=== PATIENT | male | born 1950 | race Caucasian/White ===

== ENCOUNTER → 2021-02-23 07:51 | Outpatient (CLI) | payer MEDICARE, OTHER | END | disposition home or self-care (01) | LOC: D.HCCECHO 07:51 | PROVIDERS: ATTEND Internal Medicine Cardiovascular Disease | DX: R06.02 Shortness of breath (principal) ==

== ENCOUNTER 2021-03-04 06:59 | Day surgery (SDC) | payer MEDICARE, OTHER ==
[~2021-03-04] VITALS: Ht 177.8 cm; Wt 97.0 kg
--- NOTE | ~2021-03-04 | HEMODYNAMI ---
PATIENT:TRACI GONZALES MEDICAL RECORD: [id number] : 54 LOCATION:[facility] ADMISSION DATE: 03/04/21 Generatedon:110:23 Patient name: TRACI GONZALES Patient #: [id number] SSN: [id number] : 1950 Date of study: 03/04/2021 Page: Of Hemodynamic Procedure Report Patient Data Patient Demographics Procedure consent was obtained First Name: TRACI Gender: Male Last Name: JANET : 1950 Patient #: [id number] Age: 70 year(s) Race: SSN: [id number] Additional ID: [id number] Contact details Address: [address] [place] [address] TRAIL State: [place] City: [place] Zip code: [address] Past Medical History Performed procedures and imaging results Date Procedure Procedure Results Comments 02/23/2021 Stress testing Positive->Intermediate with SPECT MPI risk Allergies Allergen Reaction Date Comments Reported Other allergy 03/04/2021 CODEINE Admission Admission Data Admission Date: 03/04/2021 Admission Time: 6:59 Arrival Date: 03/04/2021 Arrival Time: 0:00 Admit Source: Other Insurance Payor: Medicare HIC #: [id number] Height (in.): 70 BSA: 2.15 (m2) Height (cm.): 177.8 BMI: 30.85 (kg/m2) Weight (lbs.): 215 Weight (kg.): 97.52 Lab Results Lab Result Date: 03/04/2021 Lab Result Time: 0:00 Biochemistry Name Units Result Min Max BUN mg/dl 13 --(--*-)-- 7 18 Creatinine mg/dl 1.1 --(--*-)-- 0.6 1.3 eGFR ml/min 70.60675 *-(----)-- 90 120 NONAFRICAN CBC Name Units Result Min Max Hematocrit % 44 --(*---)-- 42 54 Hemoglobin g/dl 14.9 --(-*--)-- 13.5 17.5 Procedure Procedure Types Cath Procedure Diagnostic Procedure C [facility] w/Coronaries Sedation Charges Moderate Sedation 25-39 minutes Procedure Description Procedure Date Procedure Date: 03/04/2021 Procedure Start Time: 9:54 Procedure End Time: 10:21 Procedure Staff Name Function Garett Da Silva RN Nurse Blaise Toure MD Performing Physician Heather Nina RT Scrub Kayleigh Bhat RT Monitor Procedure Data Cath Procedure Fluoroscopy Diagnostic fluoroscopy Total fluoroscopy Time: 8.1 time: 8.1 min min Diagnostic fluoroscopy Total fluoroscopy dose: 957 dose: 957 mGy mGy Contrast Material Contrast Material Type Amount (ml) Isovue 300 86 Entry Location Entry Primary Successful Side Size Upsize Upsize Entry Closure Dougherty ccessful Closure Location (Fr) 1 (Fr) 2 (Fr) Remarks Device Remarks Radial Right 6 Fr Mechanical artery Short Compression Estimated blood loss: 5 ml Diagnostic catheters Device Type Used For End Catheter Placement DIAGNOSTIC [place] 110cm 5 Multi-vessel Fr catheter ([id number]) Angiography DIAGNOSTIC AR MOD 5Fr Right Coronary Catheter ([id number]) Angiography Procedure Complications No complications Procedure Medications Medication Administration Route Dosage Oxygen etCO2 Nasal cannula 2 l/min Lidocaine 2% added to field 20 Heparin Flush Bag added to field 2 bags (1000units/500ml NS) 0.9% NaCl I.V. 100 ml/hr Versed I.V. 1 mg Fentanyl I.V. 50 mcg Radial Cocktail I.A. 1 syringe (Verapamil 2mg/Nitro 400mcg/Heparin 1500units) Versed I.V. 1 mg Fentanyl I.V. 50 mcg Versed I.V. 1 mg Versed I.V. 1 mg Heparin Bolus Hemodynamics Rest BSA: 2.15 (m2) HGB: 14.9 (g/dl) O2 Consumption: Estimated: 233.59 (ml/min) O2 Co nsumption indexed: Estimated:108.65 (ml/min/m) Heart Rate: 50 (bpm) Pressure Samples Time Site Value (mmHg) Purpose Heart Use Rate(bpm) 9:58 LV 96/9,20 Snapshot 65 Gradients Valve Time Site Site Mean SEP/DFP Peak To Heart Use 1 2 (mmHg) (sec/min) Peak Rate (mmHg) (bpm) Aortic 9:58 LV AO 62 Snapshots Pre Cath Intra NCS Post Cath Vital Signs Time Heart Resp SPO2 etCO2 NIBP (mmHg) Rhythm Pain Sedation Rate (ipm) (%) (mmHg) Status Level (bpm) 9:42:28 52 16 99 26.3 154/83(137) NSR 0 (11) 10(A) , No pain 9:46:54 54 13 98 36.8 139/70(104) NSR 0 (11) 10(A) , No pain 9:51:16 54 12 93 45.1 125/64(123) NSR 0 (11) 10(A) , No pain 9:55:37 53 10 93 45.8 122/59(87) NSR 0 (11) 10(A) , No pain 9:59:48 63 11 93 41.3 96/52(71) NSR 0 (11) 9(A) , No pain 10:04:00 55 10 94 42.1 104/60(85) NSR 0 (11) 9(A) , No pain 10:08:17 63 12 95 29.3 115/63(90) NSR 0 (11) 9(A) , No pain 10:12:32 60 12 94 40.6 100/57(80) NSR 0 (11) 9(A) , No pain 10:16:48 53 13 96 39.8 97/53(74) NSR 0 (11) 10(A) , No pain 10:21:01 49 13 96 35.3 114/63(93) NSR 0 (11) 10(A) , No pain Medications Time Medication Route Dose Verified Delivered Reason Notes Effectiveness by by 9:41:25 Oxygen etCO2 2 l/min Blaise Buffie used for Nasal Mesfin Da Silva RN procedure cannula 9:41:31 Lidocaine 2% added 20ml Blaise Blaise for local to vial Mesfin Toure MD anesthetic field 9:41:37 Heparin Flush added 2 bags Blaise Blaise used for Bag to Mesfin Toure MD procedure (1000units/500ml field NS) 9:41:46 0.9% NaCl I.V. 100 Blaise Buffie Per ml/hr Mesfin Da Silva RN physician 9:46:26 Versed I.V. 1 mg Blaise Buffie for sedation Mesfin Da Silva RN 9:46:32 Fentanyl I.V. 50 mcg Blaise Buffie for sedation Mesfin Da Sliva RN 9:55:07 Versed I.V. 1 mg Blaise Blaise for sedation Mesfin Toure MD 9:55:11 Fentanyl I.V. 50 mcg Blaise Blaise for sedation Mesfin Toure MD 9:56:35 Radial Cocktail I.A. 1 Blaise Blaise for (Verapamil syringe Mesfin Toure MD vasodilation 2mg/Nitro 400mcg/Heparin 1500units) 9:59:32 Versed I.V. 1 mg Blaise Blaise for sedation Mesfin Toure MD 10:04:33 Versed I.V. 1 mg Blaise Blaise for sedation Mesfin Toure MD 10:16:49 Heparin Bolus drawn Blaise Blaise unable up, not Mesfin Toure MD to given engage lt main with guide, heparin drawn up and wasted. Procedure Log Time Note 9:03:44 Informed consent obtained and on chart 9:04:04 Arrival Date: 03/04/2021 12:00:00 AM 9:04:04 Admit Source: Other 9:04:09 Patient Height : 70 inches 9:04:14 Patient Weight : 215 lbs 9:04:18 Insurance Payor : Medicare 9:09:50 ACC Patient presents with Stable Angina CCS Anginal Class 2--Slight limitation of ordinary activity. 9:09:52 Procedure Status Elective Heart Cath (OP). 9:09:54 Time tracking: Regular hours (M-F 7:00 - 5:00) 9:09:58 Plan of Care:Hemodynamics will remain stable., Cardiac rhythm will remain stable., Comfort level will be maintained., Respiratory function will remain adequate., Patient/ family verbilizes understanding of procedure., Procedure tolerated without complication., Recovers from procedure without complications.. 9:10:07 H&P Date Dictated: 02/15/2021 Within 30 days and on chart.. 9:10:08 Pre-procedure instructions explained to patient. 9:10:09 Pre-op teaching completed and patient verbalized understanding. 9:10:10 Family unavailable. 9:10:12 Patient NPO since Midnight. 9:10:27 Patient allergic to Other allergyCODEINE 9:10:58 Lab Result : BUN 13 mg/dl 9:10:58 Lab Result : Creatinine 1.1 mg/dl 9::58 Lab Result : eGFR NONAFRICAN 70.27848 ml/min 9::58 Lab Result : Hemoglobin 14.9 g/dl 9::58 Lab Result : Hematocrit 44 % 9:11:02 Lab results completed and on chart. 9:11:20 Stress Test: yes; abnormal INFERIOR 9:11:21 Alarms reviewed by R. N. 9:11:22 Sharps counted by scrub and verified by R.N. 9:15:01 Garett Da Silva RN sent for patient. Start room use. 9:41:15 Vital chart was started 9:41:25 Oxygen 2 l/min etCO2 Nasal cannula was administered by Garett Da Silva RN; used for procedure; Verbal order read back and verified. 9:41:31 Lidocaine 2% 20ml vial added to field was administered by Blaise Toure MD; for local anesthetic; Verbal order read back and verified. 9:41:37 Heparin Flush Bag (1000units/500ml NS) 2 bags added to field was administered by Blaise Toure MD; used for procedure; Verbal order read back and verified. 9:41:46 0.9% NaCl 100 ml/hr I.V. was administered by Garett Da Silva RN; Per physician; Verbal order read back and verified. 9:44:47 Patient received from Pre/Post Procedure Room to CCL 1 Alert and oriented. Tansferred to table in Supine position. 9:44:48 Warm blankets applied, and abimael hugger turned on for patient comfort. 9:44:48 Correct patient and procedure confirmed by team. 9:44:49 Baseline sample Acquired. 9:44:49 ECG and BP/O2 sat monitors applied to patient. 9:44:52 Rhythm: sinus bradycardia 9:45:02 Full Disclosure recording started 9:45:05 Is the patient allergic to Iodine/contrast media? No. 9:45:05 Was the patient premedicated? Yes 9:45:07 Is patient on blood thinner?No 9:45:08 Patient diabetic? No. 9:45:14 Previous problem with sedation/anesthesia? No ? 9:45:16 Snore? No 9:45:17 Sleep apnea? No 9:45:18 Deviated septum? No 9:45:18 Opens mouth fully? Yes 9:45:19 Sticks out tongue? Yes 9:45:21 Airway obstruction? No ? 9:45:23 Dentures? No ? 9:45:26 Pre procedure: right dorsailis pedis pulse 2+ Normal; easily identifiable; not easily obliterated 9:45:29 Pre procedure: left dorsailis pedis pulse 2+ Normal; easily identifiable; not easily obliterated 9:45:33 Modified Usman's test Radial < 7 seconds 9:45:35 Patient pain scale 0/10 ?. 9:45:41 IV patent on arrival in left forearm with 0.9% NaCl at [facility]. 9:45:48 Right Radial & Right Groin area was prepped with chlora-prep and draped in sterile fashion 9:45:55 Physician arrived 9:45:55 --------ALL STOP TIME OUT------ 9:45:55 Final Timeout: patient, procedure, and site verified with staff and physician. All members of the team are in agreement. 9:45:57 Right Radial & Right Groin site verified by team. 9:46:01 Fire Safety Assessment: A--An alcohol-based skin anteseptic being used preoperatively., C--Open oxygen or nitrous oxide is being used., D--An ESU, laser, or fiber-optic light is being used. 9:46:04 Physical assessment completed. ASA score P 2 - A patient with mild systemic disease as per Garett Da Silva RN. 9:46:17 2) 60-89 Mildly reduced kidney function, and other findings (as for stage 1) point to kidney disease. 9:46:26 Versed 1 mg I.V. was administered by Garett Da Silva RN; for sedation; Verbal order read back and verified. 9:46:32 Fentanyl 50 mcg I.V. was administered by Garett Da Silva RN; for sedation; Verbal order read back and verified. 9:46:53 Maximum allowable contrast dose (3.7 X eGFR X 0.75)197 ml. 9:46:57 Sedation plan: IV Moderate Sedation Medication:Versed, Fentanyl 9:47:01 Use device set Radial Dx or PCI 9:47:02 ACIST Syringe (20889) opened to sterile field. 9:47:03 Medline Cath Pack ([id number]) opened to sterile field. 9:47:03 Bag Decanter (2002S) opened to sterile field. 9:47:03 ACIST Hand Control (53731) opened to sterile field. 9:47:04 ACIST Manifold (10731) opened to sterile field. 9:47:04 Tegaderm 4 x 4 (1626W) opened to sterile field. 9:47:04 MBrace Wrist Support (009490501) opened to sterile field. 9:47:05 NEEDLE Cook 21G 4cm Radial (L78227) opened to sterile field. 9:47:07 SHEATH 6FR RAIN (6905110) opened to sterile field. 9:47:07 EMERALD Guide Wire (328-875) opened to sterile field. 9:54:49 Procedure started. 9:54:54 Local anesthetic to right radial artery with Lidocaine 2% by Blaise Toure MD.INITIAL ACCESS ONLY 9:55:02 A 6 Fr Short sheath was inserted into the Right Radial artery 9:55:07 Versed 1 mg I.V. was administered by Blaise Toure MD; for sedation; Verbal order read back and verified. 9:55:11 Fentanyl 50 mcg I.V. was administered by Blaise Toure MD; for sedation; Verbal order read back and verified. 9:56:35 Radial Cocktail (Verapamil 2mg/Nitro 400mcg/Heparin 1500units) 1 syringe I.A. was administered by Blaise Toure MD; for vasodilation; Verbal order read back and verified. 9:57:32 A DIAGNOSTIC Ivanhoe 110cm 5 Fr catheter (941789) was advanced over the wire and used for Multi-vessel Angiography. 9:58:12 LV hemodynamics recorded. 9:58:13 LV gram done using REYNA 9:58:15 Injector settings: Ml/sec: 5, Volume: 15, 9:58:29 EF : 55 % 9:59:32 Versed 1 mg I.V. was administered by Blaise Toure MD; for sedation; Verbal order read back and verified. 10:00:20 LCA angiography performed. 10:00:23 Injector settings: Ml/sec: 3, Volume: 6, 10:02:30 Catheter removed. 10:02:40 A DIAGNOSTIC AR MOD 5Fr Catheter ([id number]) was advanced over the wire and used for Right Coronary Angiography. 10:04:33 Versed 1 mg I.V. was administered by Blaise Toure MD; for sedation; Verbal order read back and verified. 10:04:35 RCA angiography performed. 10:04:38 Injector settings: Ml/sec: 3, Volume: 6, 10:07:14 Catheter removed. 10:07:15 Proceeding to intervention. 10:07:37 INFLATOR Merit BaskristinCompak (JT5007) opened to sterile field. 10:07:38 BMW 300cm [place] 2 J wire (7950499Q) opened to sterile field. 10:07:38 TUBING High Pressure Extension Tubing (Mesfin) ([id number]) opened to sterile field. 10:07:56 GUIDE 6FR XBLAD 3.5 catheter (90637546) opened to sterile field. 10:08:02 ACC Pre-intervention BRITTANI Flow is 3. 10:08:12 Pre PCI Site: [place] pCirc has 90% stenosis. 10:08:22 6 Fr XBLAD 3.5 guide catheter was inserted over the wire 10:16:49 Heparin Bolus drawn up, not given was administered by Blaise Toure MD; ; unable to engage lt main with guide, heparin drawn up and wasted. Verbal order read back and verified. 10:18:[address] Toure, unable to intervene through radial artery; will stage PCI with IFR upon patient return 10:18:37 Guide catheter removed. 10:18:47 ZEPHYR REGULAR TR BAND (989830) opened to sterile field. 10:19:02 Sheath removed intact; hemostasis achieved with Mechanical Compression to the Right Radial artery. 10:19:05 Procedure ended.(Physican Out) 10:19:13 Fluoroscopy time 08.10 minutes. 10:19:17 Fluoroscopy dose: 957 mGy 10:19:17 Flurop Dose total: 957 10:19:27 Dose Area Product 29770 mGy/cm. 10:19:39 Contrast amount:Isovue 300 86ml. 10:19:41 Maximum allowable dose exceeded? No. 10:19:44 [place] band inflated with 13cc of air. 10:19:45 Insertion/operative site no bleeding no hematoma. 10:19:48 Post right radial artery:stable 10:19:50 Post Procedure Pulses reassessed and unchanged 10:19:52 Post procedure rhythm: unchanged. 10:19:55 Estimated blood loss: 5 ml 10:19:57 Post procedure instruction explained to patient.Patient verbalizes understanding. 10:19:57 Patient needs reinforcement of post procedure teaching. 10:20:39 Procedure type changed to Cath procedure, Diagnostic procedure, LHC, [facility] w/Coronaries, Sedation Charges, Moderate Sedation 25-39 minutes 10:20:47 Procedure and supply charges have been captured, reviewed, submitted and are correct. 10:20:51 Procedure Complication : No complications 10:20:54 Vital chart was stopped 10:20:58 [facility] Findings: MVD- MD will discuss options w/ pt 10:21:00 Operative report dictated upon procedure completion. 10:21:00 See physician's report for complete and final results. 10:21:03 Report given to Pre/Post Procedure Room. 10:21:05 Patient transfered to Pre/Post Procedure Room with Stretcher. 10:21:10 Procedure ended. 10:21:10 Full Disclosure recording stopped 10:21:13 End room use (Document Last) 10:22:33 End room use (Document Last) 10:22:48 End room use (Document Last) Device Usage Item Name Manufacture Quantity Catalog Hospital Part Current Minima l Lot# / Number Charge Number Stock Stock Serial# Code ACIST Acist 1 92463 770994 422454 [id number] 20 Syringe Medical (61635) Systems Inc Medline Medline 1 [id number] 113042 81924 740095 5 Cath Pack ([id number]) Bag Microtek 1 2001S 812276 83345 607187 5 Decanter Medical Inc. () ACIST Hand Acist 1 39927 717889 505958 698979 5 Control Medical (48615) Systems Inc ACIST Acist 1 97057 913253 438727 691668 5 Manifold Medical (31391) Systems Inc Tegaderm 4 3M 1 1626W 001909 974043 195570 5 x 4 (1626W) MBrace Advanced 1 140-0250-00 500274 12656 663671 5 Wrist Vascular Support Dynamics (668121381) NEEDLE Alios Bio[employer] Medical 1 J93469 539746 082554 330565 5 21G 4cm Radial (W62824) SHEATH 6FR Cardinal 1 6813342 015634 7397422 336215 [address] [facility] (1393936) EMERALD Cardinal 1 502-455 028430 151983 424512 5 Guide Wire Health (502-455) DIAGNOSTIC Terumo 1 40-2633 236643 466302 291075 5 Ivanhoe 110cm 5 Fr catheter (934685) DIAGNOSTIC Cardinal 1 005266F 993363 116128 592913 15 AR MOD 5Fr Health Catheter (325959R) INFLATOR Merit 1 TN0078 495434 253499 166250 15 Merit Medical BasixCompak (OE6565) BMW 300cm Bishop 1 [id number] 452703 464104 445157 5 [place] 2 Vascular J wire (5591947Y) TUBING High Merit 1 AM6415Y 496629 61502 376226 10 Pressure Medical Extension Tubing (Mesfin) (EP6218J) GUIDE 6FR Cardinal 1 [id number] 313611 835717 933811 10 XBLAD 3.5 Health catheter (34975386) ZEPHYR Cardinal 1 478000 934632 8182587 623614 5 REGULAR TR Health BAND (506673) Signature Audit [place] Stage Time Signature Unsigned Intra-Procedure 03/04/2021 Kayleigh Bhat 10:22:33 AM RT(R) Intra-Procedure 03/04/2021 Garett Da Silva RN 10:22:48 AM Intra-Procedure 03/04/2021 Blaise Toure MD 10:23:05 AM [id number] [place] [address]
[2021-03-04] MEDS ORDERED: LISINOPRIL20 MG PO (08:12)
[2021-03-04 08:28] VITALS: BP 143/68; Ht 177.8 cm; Wt 97.0 kg
[2021-03-04 08:51] LABS: BASOPHILS 0.5 % (0-2); EOSINOPHILS 6.7 % (0-7); HEMOGLOBIN 14.9 g/dL (13.5-17.5); IMMATURE GRANULOCYTES 0.2 % (0-5); LYMPHOCYTE ABS# 2.36 10x3/uL (1.32-3.57); LYMPHOCYTES 27.6 % (15-50); MCH 28.9 pg (26.0-34.0); MCHC 33.9 g/dL (31.0-37.0); MCV 85.4 fL (80.0-100.0); MEAN PLATELET VOLUME 9.9 fL (7.4-10.4); MONOCYTES 7.7 % (2-11); NEUTROPHIL ABS# 4.91 10x3/uL (1.78-5.38); NEUTROPHILS 57.3 % (40-80); PLATELET COUNT 293 10x3/uL (130-400); RBC 5.15 10x6/uL (4.20-6.10); RDW 13.4 % (11.5-14.5); WBC 8.6 10x3/uL (4.8-10.8)
[2021-03-04 08:56] LABS: ANION GAP 15.4 mmol/L (8-16); CALCIUM 9.2 mg/dL (8.5-10.1); CHOL - HDL RATIO 2.9 ratio (2.3-4.9); CREATININE - SERUM 1.1 mg/dL (0.6-1.3); LDL-HDL RATIO 1.7 ratio (1.5-3.5); POTASSIUM - SERUM 4.4 mmol/L (3.5-5.1)
--- NOTE | 2021-03-04 10:31 | NUR ---
PT REC'D TO OCCUPATIONAL THERAPY ASST RECOVERY ROOM 9 VIA STRETCHER. MONITORS ESTAB. AT BS. SEE CO[employer] FLOWSHEETS. ALARMS ON AND C/L IN REACH.
[2021-03-04] MEDS ORDERED: HYDROCHLOROTH12.5 M1 PO (10:45)
--- NOTE | 2021-03-04 10:45 | NUR ---
R RADIAL Z BAND SITE C/D/I, NO S/S BLEEDING OR HEMATOMA. R ARM/HAND WARM WITH PALP PULSES AND BRISK CAP REFILL. VSS. PT GIVEN FRESH WATER AND COLA, REFUSES SANDWICH AT THIS TIME. ALAMRS ON AND C/L IN REACH.
--- NOTE | 2021-03-04 11:15 | NUR ---
VSS. R WRIST Z BAND SITE C/D/I, NO S/S BLEEDING OR HEMATOMA. R ARM/HAND WARM WITH PALP PULSES. PT DENIES PAIN OR NEEDS.
--- NOTE | 2021-03-04 11:30 | NUR ---
5CC AIR REMOVED FROM Z BAND. NO S/S BLEEDING OR HEMATOMA. PULSES PALP. ALARMS ON AND C/L IN REACH.
--- NOTE | 2021-03-04 11:55 | NUR ---
TOTAL 7CC AIR REMOVED FROM Z BAND, NO S/S BLEEDING OR HEMATOMA. PULSES PALP. VSS. PT DENIES PAIN OR NEEDS. ALARMS ON AND C/L IN REACH.
--- NOTE | 2021-03-04 12:10 | NUR ---
ALL AIR REMOVED FROM Z BAND, NO S/S BLEEDING. PULSES PALP. VSS.
--- NOTE | 2021-03-04 12:25 | NUR ---
Z BAND REMOVED, NO S/S BLEEDING OR SWELLING, DSG APPLIED. PIV D/C'D INTACT, DSG APPLIED. PT ALLOWED UP TO GET DRESSED AND GO TO BR INDEPENDENTLY.
--- NOTE | 2021-03-04 12:31 | NUR ---
ALL DISCHARGE INSTRUCTIONS REVIEWED WITH PT AND HIS , INCLUDING MEDS, RESTRICTIONS AND RETURN FOR PROCEDURE SHEET FOR 03/10 - BOTH VERBALIZE UNDERSTANDING.
--- NOTE | 2021-03-04 12:40 | NUR ---
PT D/C'D TO PRIVATE VEHICLE WITH ALL PAPERWORK AND BELONGINGS.
== END 2021-03-04 12:40 | disposition home or self-care (01) ==
LOC: D.CATH 06:59
PROVIDERS: ATTEND Internal Medicine Cardiovascular Disease
DX: I20.9 Angina pectoris, unspecified (principal); R94.39 Abnormal result of other cardiovascular function study; R06.00 Dyspnea, unspecified

== ENCOUNTER 2021-03-10 06:59 | Day surgery (SDC) | payer MEDICARE, OTHER ==
[~2021-03-10] VITALS: Ht 177.8 cm; Wt 98.5 kg
--- NOTE | ~2021-03-10 | HEMODYNAMI ---
PATIENT:TRACI GONZALES MEDICAL RECORD: [id number] : 54 LOCATION:[facility] ADMISSION DATE: 03/10/21 Generatedon:19:23 Patient name: TRACI GONZALES Patient #: [id number] SSN: [id number] : 1950 Date of study: 03/10/2021 Page: Of Hemodynamic Procedure Report Patient Data Patient Demographics Procedure consent was obtained First Name: TRACI Gender: Male Last Name: JANET : 1950 Patient #: [id number] Age: 70 year(s) Race: SSN: [id number] Additional ID: [id number] Contact details Address: [facility] [address] State: [place] City: [place] Zip code: [address] Past Medical History Allergies Allergen Reaction Date Comments Reported Other allergy 03/04/2021 CODEINE Other allergy 03/10/2021 CODEINE Admission Admission Data Admission Date: 03/10/2021 Admission Time: 6:59 Arrival Date: 03/10/2021 Arrival Time: 0:00 Admit Source: Other Insurance Payor: Medicare [facility] #: [id number] Height (in.): 69.69 BSA: 2.15 (m2) Height (cm.): 177 BMI: 31.44 (kg/m2) Weight (lbs.): 217.16 Weight (kg.): 98.5 Lab Results Lab Result Date: 03/10/2021 Lab Result Time: 0:00 Biochemistry Name Units Result Min Max BUN mg/dl 20 --(----)*- 7 18 Creatinine mg/dl 1.1 --(--*-)-- 0.6 1.3 eGFR ml/min 70.29022 *-(----)-- 90 120 NONAFRICAN CBC Name Units Result Min Max Hematocrit % 44.1 --(*---)-- 42 54 Hemoglobin g/dl 14.7 --(-*--)-- 13.5 17.5 Procedure Procedure Types Cath Procedure Diagnostic Procedure FFR/IVUS FFR Initial Sedation Charges Moderate Sedation 25-39 minutes PCI Procedure Coronary Stent Coronary Stent Initial Hemochron ACT Test Procedure Description Procedure Date Procedure Date: 03/10/2021 Procedure Start Time: 8:46 Procedure End Time: 9:17 Procedure Staff Name Function Blaise Toure MD Performing Physician Koko Das RN Nurse Heather Nina RT Scrub Kayleigh Bhat RT Monitor Procedure Data Cath Procedure Fluoroscopy Diagnostic fluoroscopy Total fluoroscopy Time: 4.3 time: 4.3 min min Diagnostic fluoroscopy Total fluoroscopy dose: 650 dose: 650 mGy mGy Contrast Material Contrast Material Type Amount (ml) Isovue 300 55 Entry Location Entry Primary Successful Side Size Upsize Upsize Entry Closure Succes sful Closure Location (Fr) 1 (Fr) 2 (Fr) Remarks Device Remarks Femoral Right 6 Fr Exoseal artery Short Estimated blood loss: 5 ml Procedure Complications No complications Procedure Medications Medication Administration Route Dosage 0.9% NaCl I.V. 100 ml/hr Oxygen etCO2 Nasal cannula 2 l/min Heparin Flush Bag added to field 2 bags (1000units/500ml NS) Lidocaine 2% added to field ml Versed I.V. 2 mg Fentanyl I.V. 100 mcg Versed I.V. 1 mg Heparin Bolus I.V. 9000 units Plavix P.O. 600 mg Hemodynamics Rest BSA: 2.15 (m2) HGB: 14.7 (g/dl) O2 Consumption: Estimated: 232.16 (ml/min) O2 Co nsumption indexed: Estimated:107.98 (ml/min/m) Heart Rate: 49 (bpm) Snapshots Pre Cath Intra NCS Post Cath Vital Signs Time Heart Resp SPO2 etCO2 NIBP (mmHg) Rhythm Pain Sedation Rate (ipm) (%) (mmHg) Status Level (bpm) 8:35:20 49 13 100 34.1 156/72(112) NSR 0 (11) 10(A) , No pain 8:39:34 55 17 98 32.6 128/61(95) NSR 0 (11) 10(A) , No pain 8:43:36 54 11 96 31.1 115/63(86) NSR 0 (11) 10(A) , No pain 8:47:46 58 11 96 10.6 107/61(87) NSR 0 (11) 10(A) , No pain 8:51:51 60 10 94 22.7 113/60(77) NSR 0 (11) 10(A) , No pain 8:56:03 61 19 95 33.4 103/51(75) NSR 0 (11) 10(A) , No pain 9:00:11 62 10 96 34.1 84/53(77) NSR 0 (11) 10(A) , No pain 9:04:13 61 10 96 33.4 97/47(78) NSR 0 (11) 10(A) , No pain 9:08:19 58 11 96 35.6 97/53(75) NSR 0 (11) 10(A) , No pain 9:12:22 61 10 96 32.6 101/58(77) NSR 0 (11) 10(A) , No pain 9:17:21 53 14 98 23.5 111/62(86) NSR 0 (11) 10(A) , No pain Medications Time Medication Route Dose Verified Delivered Reason Notes Effectiveness by by 8:40:37 0.9% NaCl I.V. 100 Koko Koko Per physician ml/hr Pippa Das RN RN 8:40:46 Oxygen etCO2 2 Koko Koko for low 02 sats Nasal l/min Pippa Das cannula RN RN 8:40:55 Heparin Flush added 2 Koko Koko used for Bag to bags Pippa Das procedure (1000units/500ml field MONTOYA RN NS) 8:41:08 Lidocaine 2% added ml Koko Koko used for to Pippa Das procedure field MONTOYA RN 8:41:23 Versed I.V. 2 mg Koko Koko for sedation Pippa Das RN RN 8:41:29 Fentanyl I.V. 100 Koko Koko for sedation mcg Pippa Das RN RN 8:47:40 Versed I.V. 1 mg Koko Koko for sedation Pippa Das RN RN 8:51:03 Heparin Bolus I.V. 9,000 Koko Koko for units Pippa Das anticoagulation RN RN 9:19:15 Plavix P.O. 600 Koko Koko for mg Pippa Das antiplatelet RN RN therapy Procedure Log Time Note 8:11:21 Diagnostic Cath Status : Elective 8:12:50 Arrival Date: 03/10/2021 12:00:00 AM 8:12:51 Admit Source: Other 8:12:55 Insurance Payor : Medicare 8:16:02 Lab Result : Creatinine 1.1 mg/dl 8:16:02 Lab Result : BUN 20 mg/dl 8:16:02 Lab Result : eGFR NONAFRICAN 70.96867 ml/min 8:16:02 Lab Result : Hemoglobin 14.7 g/dl 8:16:02 Lab Result : Hematocrit 44.1 % 8:16:52 ACC Patient presents with Stable Angina CCS Anginal Class 2--Slight limitation of ordinary activity. 8:16:55 Procedure Status PCI. 8:16:58 Time tracking: Regular hours (M-F 7:00 - 5:00) 8:17:02 Plan of Care:Hemodynamics will remain stable., Cardiac rhythm will remain stable., Comfort level will be maintained., Respiratory function will remain adequate., Patient/ family verbilizes understanding of procedure., Procedure tolerated without complication., Recovers from procedure without complications.. 8:17:14 H&P Date Dictated: 02/15/2021 Within 30 days and on chart.. 8:17:17 Family in waiting room. 8:17:19 Patient NPO since Midnight. 8:17:28 Patient allergic to Other allergyCODEINE 8:17:34 Lab results completed and on chart. 8:17:36 Stress Test: no; N/A ? 8:17:38 Alarms reviewed by R. N. 8:17:38 Sharps counted by scrub and verified by R.N. 8:24:11 Koko Das RN sent for patient. Start room use. 8:28:35 Patient received from Pre/Post Procedure Room to CCL 2 Alert and oriented. Tansferred to table in Supine position. 8:28:39 Signed procedure consent form obtained from patient. 8:28:40 Warm blankets applied, and abimael hugger turned on for patient comfort. 8:28:40 Correct patient and procedure confirmed by team. 8:28:41 ECG and BP/O2 sat monitors applied to patient. 8:28:42 Pre-procedure instructions explained to patient. 8:28:42 Pre-op teaching completed and patient verbalized understanding. 8:28:45 Is the patient allergic to Iodine/contrast media? No. 8:28:47 Was the patient premedicated? Yes 8:34:06 Vital chart was started 8:34:07 Baseline sample Acquired. 8:34:11 Rhythm: sinus bradycardia 8:34:31 Previous problem with sedation/anesthesia? No ? 8:34:33 Snore? Yes 8:34:34 Sleep apnea? No 8:34:35 Deviated septum? No 8:34:35 Opens mouth fully? Yes 8:34:36 Sticks out tongue? Yes 8:34:37 Airway obstruction? No ? 8:34:39 Dentures? No ? 8:34:42 Pre procedure: right dorsailis pedis pulse 2+ Normal; easily identifiable; not easily obliterated 8:34:45 Pre procedure: left dorsailis pedis pulse 2+ Normal; easily identifiable; not easily obliterated 8:34:47 Patient pain scale 0/10 ?. 8:34:52 IV patent on arrival in left forearm with 0.9% NaCl at [facility]. 8:34:57 Right groin area was prepped with chlora-prep and draped in sterile fashion 8:35:02 Physician arrived 8:35:05 --------ALL STOP TIME OUT------ 8:35:06 Final Timeout: patient, procedure, and site verified with staff and physician. All members of the team are in agreement. 8:35:08 Right groin site verified by team. 8:35:11 Fire Safety Assessment: A--An alcohol-based skin anteseptic being used preoperatively., C--Open oxygen or nitrous oxide is being used., D--An ESU, laser, or fiber-optic light is being used. 8:35:15 Physical assessment completed. ASA score P 2 - A patient with mild systemic disease as per Blaise Toure MD. 8:35:31 2) 60-89 Mildly reduced kidney function, and other findings (as for stage 1) point to kidney disease. 8:35:34 Maximum allowable contrast dose (3.7 X eGFR X 0.75)197 ml. 8:35:38 Sedation plan: IV Moderate Sedation Medication:Versed, Fentanyl 8:39:53 Patient Height : 69.69 inches 8:39:56 Patient Weight : 217.16 lbs 8:40:37 0.9% NaCl 100 ml/hr I.V. was administered by Koko Das RN; Per physician; Verbal order read back and verified. 8:40:46 Oxygen 2 l/min etCO2 Nasal cannula was administered by Koko Das RN; for low 02 sats; Verbal order read back and verified. 8:40:55 Heparin Flush Bag (1000units/500ml NS) 2 bags added to field was administered by Koko Das RN; used for procedure; Verbal order read back and verified. 8:41:08 Lidocaine 2% ml added to field was administered by Koko Das RN; used for procedure; Verbal order read back and verified. 8:41:23 Versed 2 mg I.V. was administered by Koko Das RN; for sedation; Verbal order read back and verified. 8:41:29 Fentanyl 100 mcg I.V. was administered by Koko Das RN; for sedation; Verbal order read back and verified. 8:42:50 Use device set CATH PACK 8:42:52 ACIST Syringe (54747) opened to sterile field. 8:42:52 ACIST Hand Control (35577) opened to sterile field. 8:42:52 ACIST Manifold (65402) opened to sterile field. 8:42:53 Medline Cath Pack ([id number]) opened to sterile field. 8:42:53 Bag Decanter (2002S) opened to sterile field. 8:42:53 EMERALD Guide Wire (720-521) opened to sterile field. 8:43:02 INFLATOR Merit BasixCompak (GI8572) opened to sterile field. 8:43:03 SHEATH 6FR [place] (BBI604) opened to sterile field. 8:43:10 TUBING High Pressure Extension Tubing (Mesfin) ([id number]) opened to sterile field. 8:43:46 [place] OmniWire (01300) opened to sterile field. 8:46:46 Procedure started. 8:46:46 Full Disclosure recording started 8:46:49 Local anesthetic to right femoral artery with Lidocaine 2% by Blaise Toure MD.INITIAL ACCESS ONLY 8:46:59 A 6 Fr Short sheath was inserted into the Right Femoral artery 8:47:40 Versed 1 mg I.V. was administered by Koko Lorigan RN; for sedation; Verbal order read back and verified. 8:48:25 GUIDE 6FR EBU 3.5 catheter ([id number]) opened to sterile field. 8:48:39 6 Fr EBU 3.5 guide catheter was inserted over the wire 8:50:15 Pressure wire advanced. 8:51:03 Heparin Bolus 9,000 units I.V. was administered by Koko Das RN; for anticoagulation; Verbal order read back and verified. 8:51:51 Baseline FFR 1. 8:58:09 Place stent Inflation Number: 1 A VITALY RX 2.5 x 15 stent ([id number]) was prepped and advanced across the Prox CX 90. The stent was deployed at 11 CURRY for 0:30 (min:sec) 0. 8:59:38 Wire advanced across lesion. 8:59:46 pCirc lesion measured at 1.02 with IFR 9:00:48 Stent catheter was removed intact over wire. 9:01:17 Wire removed. 9:01:18 Guide catheter removed. 9:01:28 GUIDE 6FR JR 4.0 catheter ([id number]) opened to sterile field. 9:01:38 6 Fr JR 4 guide catheter was inserted over the wire 9:02:53 RCA angiography performed. 9:02:56 Injector settings: Ml/sec: 3, Volume: 6, 9:06:20 [place] OmniWire (61448) opened to sterile field. 9:06:59 Pressure wire advanced. 9:10:14 Wire advanced across lesion. 9:10:53 mRCA lesion measured at 0.93 with IFR 9:13:33 Wire removed. 9:13:34 Guide catheter removed. 9:13:43 EXOSEAL 6Fr (EX600) opened to sterile field. 9:13:56 Sheath removed intact; hemostasis achieved with Exoseal to the Right Femoral artery. 9:13:58 Procedure ended.(Physican Out) 9:14:52 Fluoroscopy time 04.30 minutes. 9:14:56 Flurop Dose total: 650 9:14:56 Fluoroscopy dose: 650 mGy 9:15:01 Dose Area Product 95145 mGy/cm. 9:15:13 Contrast amount:Isovue 300 55ml. 9:15:29 Maximum allowable dose exceeded? No. 9:15:30 Sharps counted by scrub and verified by R.N. 9:15:31 Insertion/operative site no bleeding no hematoma. 9:15:33 Post-op/insertion site Right Femoral artery dressed using a 4 x 4 and Tegaderm. 9:15:36 Post right femoral artery:stable 9:15:37 Post Procedure Pulses reassessed and unchanged 9:15:48 Post procedure rhythm: unchanged. 9:15:50 Estimated blood loss: 5 ml 9:16:29 Post procedure instruction explained to patient.Patient verbalizes understanding. 9:16:30 Patient needs reinforcement of post procedure teaching. 9:17:28 Procedure type changed to Cath procedure, Diagnostic procedure, FFR/IVUS, FFR Initial, Sedation Charges, Moderate Sedation 25-39 minutes, PCI procedure, Coronary Stent, Coronary Stent Initial, Hemochron ACT Test 9:17:29 Procedure and supply charges have been captured, reviewed, submitted and are correct. 9:17:33 Procedure Complication : No complications 9:17:35 Vital chart was stopped 9:17:39 [facility] Findings: MVD- PCI performed (see procedure note) 9:17:41 Operative report dictated upon procedure completion. 9:17:41 See physician's report for complete and final results. 9:17:44 Report given to Pre/Post Procedure Room. 9:17:47 Patient transfered to Pre/Post Procedure Room with Stretcher. 9:17:48 Procedure ended. 9:17:48 Full Disclosure recording stopped 9:17:57 ACC-PCI Only Patient was given prescriptions, or instructed by Blaise Toure MD to start/continue the following medications upon discharge: Plavix 9:17:59 End room use (Document Last) 9:18:54 End room use (Document Last) 9:19:15 Plavix 600 mg P.O. was administered by Koko Das RN; for antiplatelet therapy; Verbal order read back and verified. 9:19:17 End room use (Document Last) 9:22:58 ACT drawn and resulted at 359 seconds. (normal therapeutic range 180-240 seconds). Intervention Summary Intervention Notes Time ActionType Lesion and Equipment Used Action# Pressure Duration Attributes 8:58:[address] stent Prox CX VITALY RX 2.5 x 1 11 00:30 15 stent ([id number]) Device Usage Item Name Manufacture Quantity Catalog Hospital Part Current [facility] Lot# / Number Charge Number Stock Stock Serial# Code ACIST Syringe Acist 1 34432 205104 213293 455559 20 (05428) Medical Systems Inc ACIST Hand Acist 1 89489 391522 748588 733640 5 Control Medical (00994) Systems Inc ACIST Manifold Acist 1 23037 212871 065362 455910 5 (07746) Medical Systems Inc Medline Cath Medline 1 [id number] 547766 01150 296791 5 Pack ([id number]) Bag Decanter Microtek 1 2001S 280662 52292 661354 5 () Medical Inc. EMERALD Guide Cardinal 1 502-455 654888 856633 298997 5 Wire (502455) Health INFLATOR Merit Merit 1 RN0565 454461 720353 421469 15 BasixCompak Medical (ZF5294) SHEATH 6FR Terumo 1 VHW105 795066 454631 210569 40 [place] (ZOJ918) TUBING High Merit 1 [id number] 603141 94722 983968 10 Pressure Medical Extension Tubing (Toure) (UV1774F) Paterson Paterson 2 [id number] 156433 99523 9965 5 OmniWire (48967) GUIDE 6FR EBU Medtronic 1 [id number] 372482 66621 929788 3 3.5 catheter (TG0INV72) VITALY RX 2.5 x Medtronic 1 [id number] 636864 9480426 017860 5 [id number] 15 stent ([id number]) GUIDE 6FR JR Medtronic 1 [id number] 120641 73225 547163 1 4.0 catheter (TG6AI16) EXOSEAL 6Fr Cardinal 1 EX600 808904 420312 234455 10 (EX600) Health Signature Audit [place] Stage Time Signature Unsigned Intra-Procedure 03/10/2021 Kayleigh Bhat 9:18:55 AM RT(R) Intra-Procedure 03/10/2021 Koko 9:19:17 AM Pippa MONTYOA Intra-Procedure 03/10/2021 Blaise Toure MD 9:23:56 AM Signatures Performing Physician : Signature : Blaise Toure MD Date : Time : Nurse : Koko Lorigan Signature : RN Date : Time : Monitor : Kayleigh Home RT Signature : Date : Time : [address] [place] [address]
[~2021-03-10 06:59] MED LIST: HYDROCHLOROTH12.5 M1 PO; LISINOPRIL20 MG PO
[2021-03-10 07:26] VITALS: BP 144/69; Ht 177.8 cm; Wt 98.5 kg
[2021-03-10 07:52] LABS: BASOPHILS 0.5 % (0-2); EOSINOPHILS 5.8 % (0-7); HEMATOCRIT 44.1 % (42.0-54.0); HEMOGLOBIN 14.7 g/dL (13.5-17.5); IMMATURE GRANULOCYTES 0.2 % (0-5); LYMPHOCYTE ABS# 2.67 10x3/uL (1.32-3.57); LYMPHOCYTES 27.6 % (15-50); MCH 28.4 pg (26.0-34.0); MCHC 33.3 g/dL (31.0-37.0); MCV 85.1 fL (80.0-100.0); MONOCYTES 7.5 % (2-11); NEUTROPHIL ABS# 5.64 10x3/uL (1.78-5.38); NEUTROPHILS 58.4 % (40-80); PLATELET COUNT 297 10x3/uL (130-400); RBC 5.18 10x6/uL (4.20-6.10); RDW 13.5 % (11.5-14.5); WBC 9.7 10x3/uL (4.8-10.8)
[2021-03-10 07:54] LABS: ANION GAP 12.8 mmol/L (8-16); CALCIUM 9.4 mg/dL (8.5-10.1); CARBON DIOXIDE 27.4 mmol/L (21.0-32.0); CREATININE - SERUM 1.1 mg/dL (0.6-1.3); POTASSIUM - SERUM 4.2 mmol/L (3.5-5.1)
--- NOTE | 2021-03-10 09:45 | NUR ---
PT ARRIVED BY STRETCHER. PLACED ON MONITORS. ASSESSMENT COMPLETED. VSS AT THIS TIME. FAMILY AT BEDSIDE. CALL LIGHT WITHIN REACH.
[2021-03-10] MEDS ORDERED: PLAVIX75 MG PO (09:51)
[2021-03-10] MEDS ORDERED: BAYER CHEWABLE81 MG PO (09:51)
[2021-03-10] MEDS ORDERED: PRAVASTATIN SOD10 MG PO (09:53)
--- NOTE | 2021-03-10 10:00 | NUR ---
RIGHT GROIN DRESSING C/D/I. NO S/S OF HEMATOMA NOTED. CALL LIGHT WITHIN REACH. PT RESTING COMFORTABLY. VSS AT THIS TIME. FAMILY AT BEDSIDE.
--- NOTE | 2021-03-10 10:30 | NUR ---
RIGHT GROIN DRESSING C/D/I NO S/S OF HEMATOMA NOTED. RIGHT PEDAL PULSE PALPABLE. PT RESTING COMFORTABLY. AT THIS TIME. FAMILY AT BEDSIDE. DENIES NAUSEA/PAIN.
--- NOTE | 2021-03-10 11:00 | NUR ---
RIGHT GROIN DRESSING C/D/I. NO S/S OF HEMATOMA NOTED. RIGHT PEDAL PULSE PALPABLE. PT RESTING COMFORTABLY. AT THIS TIME. FAMIILY AT BEDSIDE. CALL LIGHT WITHIN REACH.
--- NOTE | 2021-03-10 11:30 | NUR ---
RIGHT GROIN DRESSING C/D/I. NO S/S OF HEMATOMA NOTED. CALL LIGHT WITHIN REACH. VSS AT THIS TIME. FAMILY AT BEDSIDE. PT VOIDED 150cc OF CLEAR YELLOW URINE IN URINAL WITHOUT DIFFICULTY.
--- NOTE | 2021-03-10 12:15 | NUR ---
RIGHT GROIN DRESSING C/D/I. NO S/S OF HEMATOMA NOTED. RIGHT PEDAL PULSE PALPABLE. HEAD OF BED INC TO 30 DEGREES. TOLERATED WELL. SET UP WITH SANDWICH TRAY AND DRINK. DENIES NAUSEA/PAIN.
--- NOTE | 2021-03-10 12:58 | NUR ---
RIGHT GROIN DRESSING C/D/I. NO S/S OF HEMATOMA NOTED. VSS AT THIS TIME. PIV D/C'D WITH CATH TIP INTACT. TOLERATED WELL. PT INSTRUCTED TO GET UP AND DRESSED AT THIS TIME. NO ASSISTANCE NEEDED. FAMILY AT BEDSIDE. CALL LIGHT LEFT WITHIN REACH.
--- NOTE | 2021-03-10 13:20 | NUR ---
PT DRESSED. RIGHT GROIN DRESSING C/D/I. NO S/S OF HEMATOMA NOTED. PT AMBULATED TO RESTROOM. VOIDED WITHOUT DIFFICULTY. STEADY GAIT NOTED. DISCUSSED DISCHARGE INSTRUCTIONS WITH PT AND PT'S FAMILY. THEY VOICED UNDERSTANDING. RX HAVE BEEN CALLED INTO [facility] PER PT REQUEST.
--- NOTE | 2021-03-10 13:25 | NUR ---
PT TAKEN OUT TO VEHICLE BY WHEELCHAIR. NO S/S OF DISTRESS NOTED. ALL BELONGINGS AND PAPERWORK IN HAND.
== END 2021-03-10 13:25 | disposition home or self-care (01) ==
LOC: D.CATH 06:59
PROVIDERS: ATTEND Internal Medicine Cardiovascular Disease
DX: I20.0 Unstable angina (principal); R06.00 Dyspnea, unspecified; R06.02 Shortness of breath; R94.30 Abnormal result of cardiovascular function study, unspecified
CPT/HCPCS: 93571; 93572; C9600